=== PATIENT | male | born 1985 | race Asian ===

== ENCOUNTER 2019-10-01 00:06 | Emergency (ER) | payer OTHER ==
[~2019-10-01] VITALS: Ht 162.6 cm; Wt 70.3 kg
[2019-10-01 00:11] VITALS: Ht 162.6 cm; Wt 70.3 kg
[2019-10-01 02:51] VITALS: BP 105/58
== END 2019-10-01 03:06 | disposition home or self-care (01) ==
LOC: ED 00:06
DX: T78.1XXA Other adverse food reactions, not elsewhere classified, initial encounter (principal); X58.XXXA Exposure to other specified factors, initial encounter
CPT/HCPCS: J1200; J2060; J3490; J7030; J7512